=== PATIENT | male | born 1980 | race Two or more races ===

== ENCOUNTER 2018-02-03 10:41 | Inpatient (IN) | payer OTHER ==
[~2018-02-03] VITALS: Ht 170.2 cm; Wt 67.5 kg
[2018-02-03] MEDS ORDERED: ASPIRIN 81 MG TABLET CHEW ONE (11:10)
[2018-02-03 11:20] LABS: MEAN CORPUSCULAR HEMOGLOBIN 30.3 pg (27.5-34.5); MEAN CORPUSCULAR HGB CONC 33.8 g/dL (33.2-36.2); MEAN CORPUSCULAR VOLUME 89.7 fL (81-97); MEAN PLATELET VOLUME 8.2 fL (7.4-10.4); PLATELET COUNT 196 x10^3/uL (130-400); RED BLOOD COUNT 5.46 x10^6/uL (4.38-5.82); RED CELL DISTRIBUTION WIDTH 12.6 % (9.4-14.8)
[2018-02-03 11:30] LABS: ALBUMIN 3.9 g/dL (3.4-5.0); ANION GAP 5 mmol/L (5-15); CALCIUM 8.9 mg/dL (8.5-10.1); CHLORIDE 106 mmol/L (98-107); CREATININE 1.26 mg/dL (0.7-1.3)
[2018-02-03] MEDS ORDERED: ASPIRIN 81 MG TABLET CHEW PO ONE (11:30)
[2018-02-03 11:33] LABS: TROPONIN I < 0.015 ng/mL (0.000-0.045)
[2018-02-03] MEDS ORDERED: SODIUM CHLORIDE FLUSH 10ML SYR IVF ONE (12:30)
[2018-02-03 12:31] LABS: BASOPHILS # (AUTO) 0.01 x10^3/uL (0-0.1); BASOPHILS % (AUTO) 0 % (0-1); EOSINOPHILS # (AUTO) 0.06 x10^3/uL (0-0.4); EOSINOPHILS % (AUTO) 0 % (1-7); LYMPHOCYTES # (AUTO) 0.42 x10^3/uL (1-3.4); LYMPHOCYTES % (AUTO) 3 % (22-44); MD SCAN; MONOCYTES # (AUTO) 0.22 x10^3/uL (0.2-0.8); MONOCYTES % (AUTO) 2 % (2-9); NEUTROPHILS # (AUTO) 13.31 x10^3/uL (1.8-6.8); NEUTROPHILS % (AUTO) 95 % (42-75)
[2018-02-03] MEDS: SODIUM CHLORIDE 0.9% 1,000 ML IV SCH (14:42)
[2018-02-03] MEDS ORDERED: NITROGLYCERIN 0.4 MG BOTTLE (25 TABS) SL PRN (15:00)
[2018-02-03] MEDS ORDERED: ONDANSETRON ODT 4 MG PO PRN (15:00)
[2018-02-03] MEDS ORDERED: ENALAPRILAT 1.25 MG/ML, 2ML IVPush PRN (15:00)
[2018-02-03] MEDS ORDERED: LABETALOL 5MG/ML, 20ML IVPush PRN (15:00)
[2018-02-03] MEDS ORDERED: ONDANSETRON 2MG/ML, 2ML IVPush PRN (15:00)
[2018-02-03] MEDS ORDERED: ACETAMINOPHEN 325 MG TABLET ONE (15:11)
[2018-02-03] MEDS: ACETAMINOPHEN 325 MG TABLET PO PRN (15:13)
[2018-02-03 17:16] VITALS: BP 108/68
[2018-02-03 18:51] LABS: TROPONIN I < 0.015 ng/mL (0.000-0.045)
[2018-02-03 19:26] LABS: MICROSCOPIC AUTO
[2018-02-03 19:29] LABS: CULTURE INDICATED? YES
[2018-02-03 20:06] VITALS: BP 104/71
[2018-02-04] VITALS (7 sets, daily range): BP systolic 89–104; BP diastolic 43–77
[2018-02-04 00:45] LABS: TROPONIN I < 0.015 ng/mL (0.000-0.045)
[2018-02-04] MEDS: SODIUM CHLORIDE 0.9% 1,000 ML IV SCH ×2 (01:01→21:24)
[2018-02-04] MEDS ORDERED: LORazepam 2 MG/ML, 1ML IVPush STA (02:44)
[2018-02-04 03:21] LABS: ANION GAP 10 mmol/L (5-15); CALCIUM 8.9 mg/dL (8.5-10.1); CHLORIDE 104 mmol/L (98-107); CREATININE 1.72 mg/dL (0.7-1.3)
[2018-02-04 03:23] LABS: BASOPHILS % (AUTO) 0 % (0-1); EOSINOPHILS # (AUTO) 0.02 x10^3/uL (0-0.4); EOSINOPHILS % (AUTO) 1 % (1-7); LYMPHOCYTES # (AUTO) 0.64 x10^3/uL (1-3.4); LYMPHOCYTES % (AUTO) 21 % (22-44); MD NO; MEAN CORPUSCULAR HEMOGLOBIN 30.6 pg (27.5-34.5); MEAN CORPUSCULAR HGB CONC 33.9 g/dL (33.2-36.2); MEAN CORPUSCULAR VOLUME 90.2 fL (81-97); MEAN PLATELET VOLUME 8.1 fL (7.4-10.4); MONOCYTES # (AUTO) 0.01 x10^3/uL (0.2-0.8); MONOCYTES % (AUTO) 0 % (2-9); NEUTROPHILS # (AUTO) 2.43 x10^3/uL (1.8-6.8); NEUTROPHILS % (AUTO) 79 % (42-75); PLATELET COUNT 169 x10^3/uL (130-400); RED BLOOD COUNT 5.53 x10^6/uL (4.38-5.82); RED CELL DISTRIBUTION WIDTH 12.9 % (9.4-14.8)
[2018-02-04] MEDS ORDERED: SODIUM CHLORIDE 0.9%, 500ML IVBOLUS ONE (03:30)
[2018-02-04] MEDS ORDERED: SODIUM CHLORIDE 0.9% 1,000 ML IV SCH ×2 (03:34→04:30)
[2018-02-04] MEDS ORDERED: PHARMACY MAY ADJ FOR RENAL FX MC SCH (04:00)
[2018-02-04] MEDS ORDERED: GLUCAGON 1 MG IM PRN (04:00)
[2018-02-04] MEDS ORDERED: DEXTROSE 4 GM TAB.CHEW PO PRN (04:00)
[2018-02-04] MEDS ORDERED: DEXTROSE 50%, 50ML SYRINGE IVPush PRN (04:00)
[2018-02-04 04:48] LABS: CHOL/HDL RATIO 4.1; LDL/HDL RATIO 2.7 (0.5-3.0)
[2018-02-04] MEDS: SODIUM CHLORIDE FLUSH 10ML SYR IVF SCH ×2 (09:11→21:24)
[2018-02-04] MEDS: CEFTRIAXONE PMX 1GM/50ML 50 ML IV SCH (10:24)
[2018-02-04] MEDS: ACETAMINOPHEN 325 MG TABLET PO PRN (14:10)
[2018-02-04] MEDS ORDERED: PHARMACY MAY ADJ FOR RENAL FX MC PRN (16:30)
[2018-02-04] MEDS: HEPARIN 5,000 UNITS/ML, 1ML SQ SCH (17:08)
[2018-02-05] MEDS: HEPARIN 5,000 UNITS/ML, 1ML SQ SCH ×3 (02:12→18:07)
[2018-02-05 02:51] VITALS: BP 94/58
[2018-02-05 05:47] LABS: BASOPHILS # (AUTO) 0.02 x10^3/uL (0-0.1); BASOPHILS % (AUTO) 0 % (0-1); EOSINOPHILS # (AUTO) 0.11 x10^3/uL (0-0.4); EOSINOPHILS % (AUTO) 2 % (1-7); LYMPHOCYTES # (AUTO) 1.59 x10^3/uL (1-3.4); LYMPHOCYTES % (AUTO) 31 % (22-44); MD NO; MEAN CORPUSCULAR HEMOGLOBIN 30.7 pg (27.5-34.5); MEAN CORPUSCULAR HGB CONC 33.8 g/dL (33.2-36.2); MEAN CORPUSCULAR VOLUME 90.8 fL (81-97); MEAN PLATELET VOLUME 8.5 fL (7.4-10.4); MONOCYTES # (AUTO) 0.82 x10^3/uL (0.2-0.8); MONOCYTES % (AUTO) 16 % (2-9); NEUTROPHILS # (AUTO) 2.55 x10^3/uL (1.8-6.8); NEUTROPHILS % (AUTO) 50 % (42-75); PLATELET COUNT 173 x10^3/uL (130-400); RED BLOOD COUNT 4.71 x10^6/uL (4.38-5.82)
[2018-02-05 05:53] LABS: ANION GAP 4 mmol/L (5-15); CALCIUM 8.5 mg/dL (8.5-10.1); CHLORIDE 111 mmol/L (98-107)
[2018-02-05 05:57] LABS: CREATININE 1.03 mg/dL (0.7-1.3)
[2018-02-05] MEDS: SODIUM CHLORIDE 0.9% 1,000 ML IV SCH ×3 (06:30→21:00)
[2018-02-05 07:12] VITALS: BP 113/71
[2018-02-05] MEDS: SODIUM CHLORIDE FLUSH 10ML SYR IVF SCH ×2 (09:23→21:00)
[2018-02-05] MEDS: CEFTRIAXONE PMX 1GM/50ML 50 ML IV SCH (09:23)
[2018-02-05 13:10] VITALS: BP 99/67
[2018-02-05 19:25] VITALS: BP 103/70
[2018-02-06 00:52] VITALS: BP 98/62
[2018-02-06] MEDS: HEPARIN 5,000 UNITS/ML, 1ML SQ SCH ×2 (02:00→10:16)
[2018-02-06] MEDS: SODIUM CHLORIDE 0.9% 1,000 ML IV SCH (05:00)
[2018-02-06 05:03] LABS: BASOPHILS # (AUTO) 0.02 x10^3/uL (0-0.1); BASOPHILS % (AUTO) 0 % (0-1); EOSINOPHILS # (AUTO) 0.16 x10^3/uL (0-0.4); EOSINOPHILS % (AUTO) 3 % (1-7); LYMPHOCYTES # (AUTO) 1.55 x10^3/uL (1-3.4); LYMPHOCYTES % (AUTO) 31 % (22-44); MD NO; MEAN CORPUSCULAR HEMOGLOBIN 30.5 pg (27.5-34.5); MEAN CORPUSCULAR VOLUME 89.7 fL (81-97); MEAN PLATELET VOLUME 8.5 fL (7.4-10.4); MONOCYTES # (AUTO) 0.64 x10^3/uL (0.2-0.8); MONOCYTES % (AUTO) 13 % (2-9); NEUTROPHILS # (AUTO) 2.63 x10^3/uL (1.8-6.8); NEUTROPHILS % (AUTO) 53 % (42-75); PLATELET COUNT 202 x10^3/uL (130-400); RED BLOOD COUNT 5.07 x10^6/uL (4.38-5.82); RED CELL DISTRIBUTION WIDTH 12.7 % (9.4-14.8)
[2018-02-06 05:14] LABS: CHLORIDE 108 mmol/L (98-107)
[2018-02-06 05:19] LABS: ANION GAP 6 mmol/L (5-15); CALCIUM 8.9 mg/dL (8.5-10.1); CREATININE 1.12 mg/dL (0.7-1.3)
[2018-02-06 06:55] VITALS: BP 106/66
[2018-02-06] MEDS: CEFTRIAXONE PMX 1GM/50ML 50 ML IV SCH (09:10)
[2018-02-06] MEDS: SODIUM CHLORIDE FLUSH 10ML SYR IVF SCH (09:11)
[2018-02-06] MEDS ORDERED: CEFD300C37 PO (12:22)
[2018-02-06] MEDS ORDERED: ACET325T14 PO (12:22)
== END 2018-02-06 12:40 | disposition home or self-care (01) | DRG 871 ==
LOC: ED 13:37 → EDIP 13:38 → INTOOBSV 13:38 → ED 14:06 → 5SO 17:11 → OBSVTOIN 02-04 16:51 → 4NOR 02-04 18:30
PROVIDERS: ADMIT Hospitalist; ATTEND Hospitalist
DX: A41.9 Sepsis, unspecified organism (principal); N17.0 Acute kidney failure with tubular necrosis; N39.0 Urinary tract infection, site not specified; E78.5 Hyperlipidemia, unspecified; F41.9 Anxiety disorder, unspecified; R79.1 Abnormal coagulation profile; Z16.11 Resistance to penicillins; Z79.82 Long term (current) use of aspirin
CPT/HCPCS: 36415; 36600; 71045; 71275; 78452; 80048; 80061; 81001; 82040; 82533; 82803; 83605; 83735; 84100; 84484; 85025; 85379; 87040; 87077; 87086; 87186; 93005; 93017; 96361; 96374; G0378; J0696; J1644; A9502; C9898; J2060; J7030; J7040